=== PATIENT | male | born 1995 | race Caucasian/White ===

== ENCOUNTER 2019-06-03 16:13 | Emergency (ER) | payer OTHER, BC ==
[2019-06-03 17:08] VITALS: BP 113/65; PULSE 60
[2019-06-03] MEDS ORDERED: Loratadine 10 MG Tab PO ONE (17:45)
--- NOTE | 2019-06-03 17:56 | EDM.PDOC ---
ED HPI GENERAL MEDICAL PROBLEM - General Chief Complaint: Allergic Reaction Stated Complaint: SWOLLEN EYES WC Time Seen by Provider: 06/03/19 17:45 Source of Information: Reports: Patient, RN Notes Reviewed - History of Present Illness INITIAL COMMENTS - FREE TEXT/NARRATIVE: Cristino is a 24 year old male, presents to the ED tonight with c/o bilateral eyelid swelling for two days, no changes in vision, drainage, fever, chills or new exposures. Took Benadryl yesterday which helped, didn't take any today, just got up an hour ago and noticed the upper lid swelling and came here. Onset: Gradual Duration: Day(s): (2) - Related Data Allergies Allergy/AdvReac Type Severity Reaction Status Date / Time No Known Allergies Allergy Verified 06/03/19 17:35 Home Meds: Home Meds NK [No Known Home Meds] 07/20/14 [History] Past Medical History - Past Health History Medical/Surgical History: Denies Medical/Surgical History Social & Family History - Tobacco Use Smoking Status *Q: Light Tobacco Smoker Years of Tobacco use: 3 Packs/Tins Daily: 0.5 - Recreational Drug Use Recreational Drug Use: No ED ROS ALLERGIC REACTION - Review of Systems Review Of Systems: ROS reveals no pertinent complaints other than HPI. ED EXAM GENERAL NO PERIP PULSE - Physical Exam Exam: See Below Exam Limited By: No Limitations General Appearance: Alert, WD/WN, No Apparent Distress Eye Exam: Bilateral Eye: EOMI, Normal Inspection, PERRL, Other (Upper lid swelling) Ears: Normal External Exam Nose: Normal Inspection, Normal Mucosa Throat/Mouth: Normal Inspection Head: Atraumatic, Normocephalic Neck: Normal Inspection, Supple, Non-Tender Cardiovascular: Normal Peripheral Pulses Extremities: Normal Inspection Neurological: Alert, Oriented, CN II-XII Intact Psychiatric: Normal Affect, Normal Mood Skin Exam: Warm, Dry, Intact Lymphatic: No Adenopathy Course - Vital Signs Last Recorded V/S: Last Vital Signs Temp 36.5 C 06/03/19 17:33 Pulse 60 06/03/19 17:33 Resp 16 06/03/19 17:33 BP 113/65 06/03/19 17:33 Pulse Ox 98 06/03/19 17:33 Eyelid swelling, consistent with environment allergies. Claritin daily. Benadryl PRN Eye drops as recommended. Return with any worsening symptoms. - Orders/Labs/Meds Orders: Active Orders 24 hr Category Date Time Status Loratadine [Claritin] Med 06/03/19 17:45 Once 10 mg PO ONETIME ONE Departure - Departure Time of Disposition: 18:30 Disposition: Home, Self-Care 01 Condition: Good Clinical Impression: Environmental allergies - Discharge Information Instructions: Allergies, Adult, [id number] Referrals: PCP,None [Primary Care Provider] - Additional Instructions: Claritin Daily for one week Eye drops as prescribed. Benadryl as needed. - My Orders Last 24 Hours: My Active Orders 06/03/19 17:45 Loratadine [Claritin] 10 mg PO ONETIME ONE - Assessment/Plan Last 24 Hours: My Active Orders 06/03/19 17:45 Loratadine [Claritin] 10 mg PO ONETIME ONE
== END 2019-06-03 18:32 | disposition home or self-care (01) ==
LOC: JP.ED 16:13
DX: T78.49XA Other allergy, initial encounter (principal); F17.200 Nicotine dependence, unspecified, uncomplicated
CPT/HCPCS: 99282; A9270

== ENCOUNTER 2022-09-24 01:28 | Emergency (ER) | payer BC, OTHER ==
[2022-09-24 01:50] VITALS: PULSE 88
[2022-09-24] MEDS ORDERED: Bacitracin Oint 1 GM U/D Packet TOP ONE ×4 (01:59→02:43)
[2022-09-24] MEDS ORDERED: Acetaminophen/oxyCODONE 325-5 MG Tab PO ONE (02:07)
[2022-09-24] MEDS ORDERED: Mupirocin Oint 22 GM Tube TOP ONE (02:39)
== END 2022-09-24 02:57 | disposition home or self-care (01) ==
LOC: JP.ED 01:28
DX: T20.24XA Burn of second degree of nose (septum), initial encounter (principal); T22.211A Burn of second degree of right forearm, initial encounter; X12.XXXA Contact with other hot fluids, initial encounter; Y99.0 Civilian activity done for income or pay
CPT/HCPCS: 16020; 99283; A9270-GY